=== PATIENT | female | born 1990 | race Caucasian/White ===

== ENCOUNTER 2016-12-25 22:04 | Inpatient (IN) | payer BC, OTHER ==
[~2016-12-25] VITALS: Ht 162.6 cm; Wt 55.2 kg
[2016-12-25] MEDS ORDERED: SODIUM CHLORIDE 0.9% 1000ML 1,000 ML IV STA ×2 (22:21)
[2016-12-25] MEDS ORDERED: LORAZEPAM 2 MG/ML 1 ML VIAL IV STA (22:21)
[2016-12-25] MEDS ORDERED: MULTI-VITAMIN INFUSION INJ 10 ML, THIAMINE HCL INJ 100 MG, FoLIC ACID INJ 1 MG in SODIU... IV ONE (22:30)
[2016-12-25 22:46] LABS: URINE APPEARANCE CLEAR (CLEAR); URINE BILIRUBIN NEG (NEG); URINE COLOR YELLOW; URINE EPITHELIAL CELL AUTO >30 /lpf (0-5); URINE NITRITE NEG (NEG); URINE PH 5.5 (4.5-7.5); UROBILINOGEN NEG (NEG); ZZUR CULT IF INDIC CLEAN CATCH YES
[2016-12-25 22:48] LABS: MANUAL MICROSCOPIC REQUIRED? NO; REVIEW REQ? NO
[2016-12-25] MEDS ORDERED: WLLSR/300 PO (22:53)
[2016-12-25] MEDS ORDERED: DPPI400 INJ (22:53)
[2016-12-25] MEDS ORDERED: QUET1TAB32 PO (22:53)
[2016-12-25] MEDS ORDERED: TOPI50TA16 PO (22:53)
[2016-12-25 23:00] LABS: MEAN CELL VOLUME 88.2 fL (80-100); MEAN CORPUSCULAR HEMOGLOBIN 31.6 pg (25-34); MEAN CORPUSCULAR HGB CONC 35.8 g/dl (32-36); MEAN PLATELET VOLUME 9.8 fL (7.4-10.4); PLATELET COUNT 261 K/uL (130-400); RED BLOOD COUNT 5.44 M/uL (4.2-5.4); WHITE BLOOD COUNT 7.41 K/uL (4.8-10.8)
[2016-12-25 23:14] LABS: PROTHROMBIN TIME (PATIENT) 10.2 SECONDS (9.0-12.0)
[2016-12-25 23:19] LABS: BUN/CREATININE RATIO 19.6 (10-20); CALCIUM 9.9 mg/dl (8.5-10.1); CREATININE 0.75 mg/dl (0.60-1.20); POTASSIUM 3.3 mmol/L (3.5-5.1)
[2016-12-25 23:20] LABS: BENZODIAZEPINE, URINE NEG (NEG); COCAINE,URINE NEG (NEG); PHENCYCLIDINE, URINE NEG (NEG)
[2016-12-25 23:28] LABS: ACETAMINOPHEN < 2 ug/ml (10-30); PREG INTERNAL NEGATIVE QC NEG CLEAR BACKGROUND; PREG INTERNAL POSITIVE QC POS CONTROL LINE
[2016-12-25 23:31] LABS: BASO % 0.4 %; BASO ABS # 0.03 K/uL (0-0.2); COMPLETE YES; EOS % 0.4 %; IG% 0.1 %; LYMPH % 53.4 %; LYMPH ABS # 3.96 K/uL (1.2-3.4); MONO % 4.9 %; NEUT % 40.8 %
[2016-12-25] MEDS ORDERED: POTASSIUM CHLORIDE 10 MEQ TABCR PO STA (23:42)
[2016-12-26] VITALS (21 sets, daily range): BP systolic 77–130; BP diastolic 34–94; PULSE 97–145; TEMP 36.6–37.5; O2SAT 94–100; Ht 162.6 cm; Wt 55.2 kg
--- NOTE | 2016-12-26 00:56 | History and Physical ---
History & Physical Date & Time of Service: Dec 26, 2016 at 00:51 Chief Complaint: Alcohol Detox Primary Care Physician: No Doctor, Assigned History of Present Illness Source: patient Loli is a 26 yo F who reports she has been drinking for many years, and moreso over the last few days. She presents intoxicated today and reports she wants to go to inpatient rehab. She reports her last drink was around noon on but is not definite on this. She reports she was drinking alone the last four days, and minly has vodka with orange juice. A large trigger for her alcohol consumption was her partner in [place] from a heroin overdose in September after she came to [facility]. She has been to in rehab before in [place] and found it helpful. She feels tremulous at this time, but denies any seizures before arrival. Past Medical/Surgical History Medical Problems: (1) Alcohol intoxication (2) Alcohol withdrawal Family History No pertinent FHx Social History Smoking Status: Current Every Day Smoker Smokeless Tobacco Use: No Alcohol Use: heavy Drug Use: marijuana Marital Status: single Housing status: lives alone Occupational Status: [employer] student Allergies Coded Allergies: No Known Allergies (Unverified , 12/25/16) Home Medications Scheduled Bupropion HCl (Wellbutrin Xl), 300 MG PO DAILY Medroxyprogesterone Acetate (Depo-Provera), 400 MG INJ [id number] Quetiapine Fumarate (Seroquel), 50-150 MG PO HS Topiramate (Topamax), 50 MG PO DAILY Review of Systems See HPI for pertinent positives & negatives. A total of 10 systems reviewed and were otherwise negative. Physical Exam Vital Signs Date Time Temp Pulse Resp B/P (MAP) Pulse Ox O2 Delivery O2 Flow Rate FiO2 12/26/16 00:43 130 19 98 12/26/16 00:38 127 17 98 12/26/16 00:33 125 18 98 12/26/16 00:28 122 17 97 12/26/16 00:23 124 17 97 12/26/16 00:18 121 18 97 12/26/16 00:13 119 15 97 12/26/16 00:08 128 20 98 12/26/16 00:03 120 19 97 12/25/16 23:58 121 15 99 12/25/16 23:53 123 20 98 12/25/16 23:48 127 19 98 12/25/16 23:43 125 18 96 12/25/16 23:38 121 23 97 12/25/16 23:33 122 22 98 12/25/16 23:28 118 20 126/91 98 Room Air 12/25/16 23:24 118 20 98 12/25/16 23:19 119 24 99 12/25/16 23:14 123 22 99 12/25/16 23:09 122 21 96 12/25/16 23:04 123 19 99 12/25/16 22:59 123 16 98 12/25/16 22:54 126 25 97 12/25/16 22:49 135 19 12/25/16 22:44 128 18 12/25/16 22:39 132 17 12/25/16 22:38 163 12/25/16 22:09 37.6 160 18 141/92 95 Room Air General Appearance: WD/WN, + mild distress, + thin Head: normocephalic, atraumatic Eyes: normal inspection ENT: hearing grossly normal Neck: supple, no JVD Respiratory/Chest: lungs clear, normal breath sounds, no respiratory distress Cardiovascular: no murmur, normal peripheral pulses, + tachycardia Abdomen/GI: non tender, soft Back: no CVA tenderness, no muscle spasm Extremities/Musculoskelatal: no calf tenderness, no pedal edema Neurologic/Psych: alert, normal mood/affect, normal reflexes, oriented x 3, + depressed affect Skin: no rash Lymphatic: no adenopathy Diagnostics Laboratory Results Results Past 24 Hours Test 12/25/16 22:31 12/25/16 22:38 Range/Units Urine Color YELLOW Urine Appearance CLEAR CLEAR Urine pH 5.5 4.5-7.5 Urine Specific [place] 1.020 1.000-1.030 Urine Protein 3+ NEG Urine Glucose (UA) NEG NEG Urine Ketones NEG NEG Urine Occult Blood 1+ NEG Urine Nitrite NEG NEG Urine Bilirubin NEG NEG Urine Urobilinogen NEG NEG Urine Leukocyte Esterase NEG NEG Urine WBC (Auto) 5-10 0-5 /hpf Urine RBC (Auto) 0-4 0-4 /hpf Urine Hyaline Casts (Auto) 5-10 0-5 /lpf Urine Epithelial Cells (Auto) >30 0-5 /lpf Urine Bacteria (Auto) 1+ NEG Urine Opiates Screen NEG NEG Urine Methadone, Qualitative NEG NEG Urine Barbiturates NEG NEG Urine Phencyclidine (PCP) Level NEG NEG Ur Amphetamine/Methamphetamine NEG NEG MDMA (Ecstasy) Screen POS NEG Urine Benzodiazepines Screen NEG NEG Urine Cocaine Metabolite NEG NEG Urine Marijuana (THC) POS NEG White Blood Count 7.41 4.8-10.8 K/uL Red Blood Count 5.44 4.2-5.4 M/uL Hemoglobin 17.2 12.0-16.0 g/dL Hematocrit 48.0 37-47 % Mean Corpuscular Volume 88.2 80-100 fL Mean Corpuscular Hemoglobin 31.6 25-34 pg Mean Corpuscular Hemoglobin Concent 35.8 32-36 g/dl Platelet Count 261 130-400 K/uL Mean Platelet Volume 9.8 7.4-10.4 fL Neutrophils (%) (Auto) 40.8 % Lymphocytes (%) (Auto) 53.4 % Monocytes (%) (Auto) 4.9 % Eosinophils (%) (Auto) 0.4 % Basophils (%) (Auto) 0.4 % Neutrophils # (Auto) 3.02 1.4-6.5 K/uL Lymphocytes # (Auto) 3.96 1.2-3.4 K/uL Monocytes # (Auto) 0.36 0.11-0.59 K/uL Eosinophils # (Auto) 0.03 0-0.5 K/uL Basophils # (Auto) 0.03 0-0.2 K/uL RDW Standard Deviation 38.9 36.4-46.3 fL RDW Coefficient of Variation 12.2 11.5-14.5 % Immature Granulocyte % (Auto) 0.1 % Immature Granulocyte # (Auto) 0.01 0.00-0.02 K/uL Prothrombin Time 10.2 9.0-12.0 SECONDS Prothromb Time International Ratio 1.0 0.9-1.1 Activated Partial Thromboplast Time 25.2 21.0-31.0 SECONDS Partial Thromboplastin Ratio 1.0 Sodium Level 145 136-145 mmol/L Potassium Level 3.3 3.5-5.1 mmol/L Chloride Level 106 98-107 mmol/L Carbon Dioxide Level 24 21-32 mmol/L Anion Gap 15.0 3-11 mmol/L Blood Urea Nitrogen 15 7-18 mg/dl Creatinine 0.75 0.60-1.20 mg/dl Est Creatinine Clear Calc Drug Dose 95.5 ml/min Estimated GFR () 129.3 Estimated GFR (Non- 111.6 BUN/Creatinine Ratio 19.6 10-20 Random Glucose 110 70-99 mg/dl Osmolality 388 280-300 mOsm/kg Calcium Level 9.9 8.5-10.1 mg/dl Total Bilirubin 1.1 0.2-1 mg/dl Direct Bilirubin 0.3 0-0.2 mg/dl Aspartate Amino Transf (AST/SGOT) 27 15-37 U/L Alanine Aminotransferase (ALT/SGPT) 27 12-78 U/L Alkaline Phosphatase 63 45-117 U/L Total Creatine Kinase 250 26-192 U/L Total Protein 7.9 6.4-8.2 gm/dl Albumin 4.4 3.4-5.0 gm/dl Human Chorionic Gonadotropin, Qual NEG NEG Salicylates Level < 1.7 2.8-20 mg/dl Acetaminophen Level < 2 10-30 ug/ml Ethyl Alcohol mg/dL 353.0 0-3 mg/dl Microbiology Results 12/25/16 Urine Culture, Received Pending Impression Assessment and Plan 26 yo F with acute alcohol withdrawal - last drink about 12 hours ago. Alcohol withdrawal - Gabapentin protocol - Ativan PRN as well - Referral to social studies department chair - Banana bag - Thiamine replacement - IV Fluids - Zofran PRN Depression - No suicidal intent at this time, but has had thoughts in last few weeks, but has never acted on them. Does not want to see Psych at this time but reports will think about it. - Continue home medications VTE: Early ambulation, SCDs DISPO: Tele CODE STATUS: FULL Resident Physician Supervision Note: I was present with Dr. Polanco during the history and exam. I discussed the case with the resident and agree with the findings and plan as documented in the note. Any exceptions or clarifications are listed here: 26 y/o F Hx ETOH abuse presenting with alcoholic halucinosis and impending DTs - does have a history of same OE AAO x 3 S1,2 R CTAB NT, ND Coordination may be mildly impaired P: Treat for acute withdrawal - Benzodiazepines for now - and look to transfer to rehab facility Advised on smoking cessation Above discussed with pt and resident Documented By: Tim Pearce Level of Care Telemetry Resuscitation Status FULL RESUSCITATION VTE Prophylaxis VTE Risk Assessment Done? Y/N: Yes Risk Level: Moderate Resident Tracking Resident Involvement: Resident Care Provided Care Provided: Adult Hospital Medicine
[2016-12-26] MEDS ORDERED: POLYETHYLENE (MIRALAX) 17 GM PACK PO PRN (01:00)
[2016-12-26] MEDS ORDERED: MAGNESIUM HYDROXIDE SUSP 30 ML UDC PO PRN (01:00)
[2016-12-26] MEDS ORDERED: ACETAMINOPHEN 325 MG TAB PO PRN (01:00)
[2016-12-26] MEDS ORDERED: LORAZEPAM 2 MG/ML 1 ML VIAL IV PRN (01:00)
[2016-12-26] MEDS ORDERED: ALUMINUM/MAGNESIUM/SIMETH (MAALOX MAX) 30 ML UDC PO PRN (01:00)
[2016-12-26] MEDS ORDERED: ONDANSETRON INJ 2 MG/ML 2 ML VIAL IV PRN (01:00)
[2016-12-26] MEDS ORDERED: GABAPENTIN 600 MG TAB PO SCH (01:00)
[2016-12-26] MEDS ORDERED: GABAPENTIN 1200MG LOADING DOSE PO ONE (02:00)
[2016-12-26] MEDS ORDERED: NURSING VERBAL MED ORDER ONE ×2 (02:45→05:00)
--- NOTE | 2016-12-26 02:48 | EMERGENCY ROOM VISIT NOTE ---
History First contact with patient: 22:13 Chief Complaint: DETOX REQUEST Stated Complaint: ALCOHOL DETOX Nursing Triage Summary: pt requesting detox from ETOH History of Present Illness The patient is a 26 year old female who presents to the Emergency Room with complaints of alcoholism requesting detox. Patient gone to rehabilitation before. Patient states she gets the shakes from not drinking. She has been drinking nonstop for the past 4 days. She's been drinking vodka. She also smokes. No recent recreational drug abuse. She has smoked marijuana in the past. Patient states she has been seeing things that have not been there today. She states she thought it was raining but was not. No history of seizures from alcohol withdrawal. Patient states she does get very tremulous though. Patient is requesting detox. She denies chest pain, dyspnea, fever, chills, cough, congestion, abdominal pain, black or blood in her stool or any other medical complaints. Patient states she just put on her vodka just prior to getting here. She does not know how much she drinks daily but states it is a lot. Review of Systems See HPI for pertinent positives & negatives. A total of 10 systems reviewed and were otherwise negative. Past Medical/Surgical History Medical Problems: (1) Alcohol intoxication (2) Alcohol withdrawal Alcoholism, anxiety Social History Smoking Status: Current Every Day Smoker Alcohol Use: heavy Housing Status: lives with roommate Occupation Status: [employer] student Current/Historical Medications Scheduled Bupropion HCl (Wellbutrin Xl), 300 MG PO DAILY Medroxyprogesterone Acetate (Depo-Provera), 400 MG INJ [id number] Quetiapine Fumarate (Seroquel), 50-150 MG PO HS Topiramate (Topamax), 50 MG PO DAILY Physical Exam Vital Signs Date Time Temp Pulse Resp B/P (MAP) Pulse Ox O2 Delivery O2 Flow Rate FiO2 12/26/16 00:48 133 15 97 12/26/16 00:43 130 19 98 12/26/16 00:38 127 17 98 12/26/16 00:33 125 18 98 12/26/16 00:28 122 17 97 12/26/16 00:23 124 17 97 12/26/16 00:18 121 18 97 12/26/16 00:13 119 15 97 12/26/16 00:08 128 20 98 12/26/16 00:03 120 19 97 12/25/16 23:58 121 15 99 12/25/16 23:53 123 20 98 12/25/16 23:48 127 19 98 12/25/16 23:43 125 18 96 12/25/16 23:38 121 23 97 12/25/16 23:33 122 22 98 12/25/16 23:28 118 20 126/91 98 Room Air 12/25/16 23:24 118 20 98 12/25/16 23:19 119 24 99 12/25/16 23:14 123 22 99 12/25/16 23:09 122 21 96 12/25/16 23:04 123 19 99 12/25/16 22:59 123 16 98 12/25/16 22:54 126 25 97 12/25/16 22:49 135 19 12/25/16 22:44 128 18 12/25/16 22:39 132 17 12/25/16 22:38 163 12/25/16 22:09 37.6 160 18 141/92 95 Room Air Physical Exam PHYSICAL EXAM: VITALS: Vitals are noted on the nurse's note and reviewed by myself. Vital signs tachycardic. GENERAL: Pleasant female tearful crying and anxious with EtOH odor, in no acute distress, nondiaphoretic, well-developed well-nourished. The patient is visibly intoxicated. SKIN: The skin was without obvious lacerations, abrasions, or rashes. There is no tenting of the skin. Capillary reflex less than 2 seconds. HEENT: Normocephalic, atraumatic. PERRLA. EOMI. Conjunctiva with mild injection without icterus. Tympanic membranes without erythema or effusion bilaterally no hemotympanum. External auditory canals are clear. Nares patent bilaterally. No epistaxis. Oropharynx without erythema or exudate. Uvula midline. Oral mucosal moist. No lymphadenopathy. Neck is supple without cervical spine tenderness. HEART: Regular rate and rhythm without murmurs gallops or rubs. Peripheral pulses 2+. LUNGS: Clear to auscultation bilaterally without wheezes, rales or rhonchi. ABDOMEN: Positive bowel sounds x 4. Normal tympanic percussion. Soft, nontender, without masses or organomegaly. MUSCULOSKELETAL: Gross motor function of the upper and lower extremities intact. The patient has a staggering gait. NEUROLOGIC: The patient is visibly intoxicated. Once they were more sober they were alert and oriented to person place and time. Medical Decision & Procedures Laboratory Results 12/25/16 22:38 Red Blood Count 5.44, Mean Corpuscular Volume 88.2, Mean Corpuscular Hemoglobin 31.6, Mean Corpuscular Hemoglobin Concent 35.8, Mean Platelet Volume 9.8, Neutrophils (%) (Auto) 40.8, Lymphocytes (%) (Auto) 53.4, Monocytes (%) (Auto) 4.9, Eosinophils (%) (Auto) 0.4, Basophils (%) (Auto) 0.4, Neutrophils # (Auto) 3.02, Lymphocytes # (Auto) 3.96, Monocytes # (Auto) 0.36, Eosinophils # (Auto) 0.03, Basophils # (Auto) 0.03 12/25/16 22:38 Test 12/25/16 22:31 12/25/16 22:38 Urine Color YELLOW Urine Appearance CLEAR (CLEAR) Urine pH 5.5 (4.5-7.5) Urine Specific [place] 1.020 (1.000-1.030) Urine Protein 3+ (NEG) Urine Glucose (UA) NEG (NEG) Urine Ketones NEG (NEG) Urine Occult Blood 1+ (NEG) Urine Nitrite NEG (NEG) Urine Bilirubin NEG (NEG) Urine Urobilinogen NEG (NEG) Urine Leukocyte Esterase NEG (NEG) Urine WBC (Auto) 5-10 /hpf (0-5) Urine RBC (Auto) 0-4 /hpf (0-4) Urine Hyaline Casts (Auto) 5-10 /lpf (0-5) Urine Epithelial Cells (Auto) >30 /lpf (0-5) Urine Bacteria (Auto) 1+ (NEG) Urine Opiates Screen NEG (NEG) Urine Methadone, Qualitative NEG (NEG) Urine Barbiturates NEG (NEG) Urine Phencyclidine (PCP) Level NEG (NEG) Ur Amphetamine/Methamphetamine NEG (NEG) MDMA (Ecstasy) Screen POS (NEG) Urine Benzodiazepines Screen NEG (NEG) Urine Cocaine Metabolite NEG (NEG) Urine Marijuana (THC) POS (NEG) White Blood Count 7.41 K/uL (4.8-10.8) Red Blood Count 5.44 M/uL (4.2-5.4) Hemoglobin 17.2 g/dL (12.0-16.0) Hematocrit 48.0 % (37-47) Mean Corpuscular Volume 88.2 fL (80-100) Mean Corpuscular Hemoglobin 31.6 pg (25-34) Mean Corpuscular Hemoglobin Concent 35.8 g/dl (32-36) Platelet Count 261 K/uL (130-400) Mean Platelet Volume 9.8 fL (7.4-10.4) Neutrophils (%) (Auto) 40.8 % Lymphocytes (%) (Auto) 53.4 % Monocytes (%) (Auto) 4.9 % Eosinophils (%) (Auto) 0.4 % Basophils (%) (Auto) 0.4 % Neutrophils # (Auto) 3.02 K/uL (1.4-6.5) Lymphocytes # (Auto) 3.96 K/uL (1.2-3.4) Monocytes # (Auto) 0.36 K/uL (0.11-0.59) Eosinophils # (Auto) 0.03 K/uL (0-0.5) Basophils # (Auto) 0.03 K/uL (0-0.2) RDW Standard Deviation 38.9 fL (36.4-46.3) RDW Coefficient of Variation 12.2 % (11.5-14.5) Immature Granulocyte % (Auto) 0.1 % Immature Granulocyte # (Auto) 0.01 K/uL (0.00-0.02) Prothrombin Time 10.2 SECONDS (9.0-12.0) Prothromb Time International Ratio 1.0 (0.9-1.1) Activated Partial Thromboplast Time 25.2 SECONDS (21.0-31.0) Partial Thromboplastin Ratio 1.0 Anion Gap 15.0 mmol/L (3-11) Est Creatinine Clear Calc Drug Dose 95.5 ml/min Estimated GFR () 129.3 Estimated GFR (Non- 111.6 BUN/Creatinine Ratio 19.6 (10-20) Osmolality 388 mOsm/kg (280-300) Calcium Level 9.9 mg/dl (8.5-10.1) Total Bilirubin 1.1 mg/dl (0.2-1) Direct Bilirubin 0.3 mg/dl (0-0.2) Aspartate Amino Transf (AST/SGOT) 27 U/L (15-37) Alanine Aminotransferase (ALT/SGPT) 27 U/L (12-78) Alkaline Phosphatase 63 U/L (45-117) Total Creatine Kinase 250 U/L (26-192) Total Protein 7.9 gm/dl (6.4-8.2) Albumin 4.4 gm/dl (3.4-5.0) Human Chorionic Gonadotropin, Qual NEG (NEG) Salicylates Level < 1.7 mg/dl (2.8-20) Acetaminophen Level < 2 ug/ml (10-30) Ethyl Alcohol mg/dL 353.0 mg/dl (0-3) Medications Administered Medications (Trade) Dose Ordered Sig/Zack Route Start Time Stop Time Status Last Admin Dose Admin Sodium Chloride 1,000 ml @ 999 mls/hr Q1H1M STAT IV 12/25/16 22:21 12/25/16 23:21 DC 12/25/16 22:51 999 MLS/HR Sodium Chloride 1,000 ml @ 125 mls/hr Q8H STAT IV 12/25/16 22:21 12/26/16 01:17 DC 12/26/16 00:49 125 MLS/HR Multivitamins 10 ml/Thiamine HCl 100 mg/Folic Acid 1 mg/Sodium Chloride 1,011.2 ml @ 150 mls/ hr Q6H45M ONCE IV 12/25/16 22:30 12/26/16 05:14 12/25/16 23:18 150 MLS/HR Lorazepam (Ativan Inj) 0.5 mg NOW STAT IV 12/25/16 22:21 12/25/16 22:23 DC 12/25/16 22:50 0.5 MG Potassium Chloride (Klor-Con M10) 20 meq NOW STAT PO 12/25/16 23:42 12/25/16 23:43 DC 12/26/16 00:53 20 MEQ ED Course Prior records/ancillary studies reviewed. Triage Nursing notes reviewed. The patient's history was concerning for altered mental status and a possible alcohol overdose. Differential diagnosis: Etiologies such as alcohol intoxication, toxicologic, infection, hypoglycemia, electrolyte abnormalities, cardiac sources, intracerebral event, neurologic, as well as others were entertained. Physical examination: As above. The patient is clinically intoxicated. no trauma noted. ER treatment provided: Monitoring Aspiration precautions The patient was frequently reassessed. Diagnostic interpretation by me: Cardiac monitoring did not reveal any evidence of dysrhythmia. The labs revealed hypokalemia and this is replaced orally. The patient's blood alcohol level was 353 mg/dL. Consultation: I consulted the hospice, Dr. Pearce, and will evaluate the patient for possible admission for alcohol withdrawal and abuse. Exam and history seem consistent with alcoholism. Patient has a history of DTs and has been hallucinating. She will be evaluated by medicine for possible admission. She was hydrated as above. Banana bag was initiated.By the evaluation outlined above emergent etiologies such as trauma, infection, hypoglycemia, electrolyte abnormalities, cardiac sources, intracerebral event, neurologic,as well as others were deemed relatively unlikely. The patient was informed about the findings as listed above. The patient was counseled on the dangers of excessive alcohol use. I gave my usual and customary discussion regarding this issue. All questions were answered and the patient was pleased with the treatment. Case reviewed with my attending. Medical Decision As above Medication Reconcilliation Current Medication List: was personally reviewed by me Blood Pressure Screening Patient's blood pressure: Normal blood pressure Impression Primary Impression: Alcohol abuse Additional Impression: Hypokalemia Departure Information Dispostion Being Evaluated By Hospitalist Condition FAIR Patient Instructions My [facility] Problem Qualifiers
[2016-12-26] MEDS ORDERED: THIAMINE HCL 100 MG/ML 2 ML VIAL IV SCH (04:45)
[2016-12-26] MEDS ORDERED: SODIUM CHLORIDE 0.9% 1000ML 1,000 ML IV SCH (05:15)
[2016-12-26] MEDS: SODIUM CHLOR 0.45% + 20MEQ KCL 1,000 ML IV SCH ×2 (06:18→11:27)
--- NOTE | 2016-12-26 08:59 | Family Medicine Progress Note ---
Progress Note Date of Service Dec 26, 2016. Subjective Pt evaluation today including: conversation w/ patient The patient was seen and examined at bedside. Pt is sedated. She received 1200 mg of Gabapentin overnight and Ativan. She is on the AWSS protocol. Unable to assess a history because patient is sedated. Appears well. Awakens for long enough to say "come back later". Sinus tach on tele. * Update: Pt examined around 10am and was awake, alert and oriented. She denies ever requesting inpatient rehab. She states that she wants to be discharged to home when she is medically ready. Told pt that we would like to see normal vital signs for age before discharging. * ROS: No chest pain, no SOB, no dyspnea on exertion, no palpitations, no fevers, no chills, no nausea, no vomiting, no diarrhea, no dysuria, no rash, no abdominal pain. Constitutional: No fever, No chills Respiratory: No cough, No sputum, No wheezing, No shortness of breath Abdomen: No pain, No nausea, No vomiting, No diarrhea Female : No dysuria Objective Physical Exam General Appearance: WD/WN, + pertinent finding (sleeping) Eyes: normal inspection Respiratory/Chest: chest non-tender, lungs clear, normal breath sounds, no respiratory distress, no accessory muscle use Cardiovascular: regular rate, rhythm, no edema, no gallop, no JVD, no murmur Abdomen: normal bowel sounds, non tender, soft, no organomegaly Extremities: normal range of motion, non-tender, normal inspection, no pedal edema, no calf tenderness Neurologic/Psychiatric: alert, normal mood/affect, + pertinent finding (Unable to assess orientation because of sedation. ) Skin: normal color, warm/dry, no rash Assessment and Plan 26F with acute alcohol withdrawal - last drink about 12 hours ago. In the ED pt states to admitting resident that she wanted to go to inpatient rehab. Discharge planning eval was consulted. Urine tox was positive for ethyl alcohol , MDMA and Marijuana. After acute intoxication episode resolved pt denies requesting inpatient rehab. She would like to be discharged to home. Will discharge when medically stable. Polysubstance Abuse (alcohol, marijuana) - Pt appears to be at her baseline, answering questions appropriately, albeit tachycardic on monitor. - Ethyl alcohol level was >300, urine was positive for MDMA and Marijuana - pt states she doesn't know why her urine was positive for MDMA. - Aggressive fluid rehydration, 200mls/hr of 1/2NSS with 20meq of KCL. - We will monitor for signs of alcohol withdrawal and treat withdrawal symptoms with hospital AWSS protocol (Gabapenting, Lorazepam PRN) - Thiamine 500mg PO daily. - Zofran Prn for symptoms. - Resume regular diet. - smoking cessation consult - reassess in am Abnormal UA - Urine Culture negative Depression - No suicidal intent at this time, but has had thoughts in last few weeks, but has never acted on them. Does not want to see Psych at this time but reports will think about it. - Continue home psych medications * Wellbutrin 300mg daily * Topamax 50mg daily. * Quetiapine 100mg QHS - Monitor DVT Proph: Early ambulation, SCDs DISPO: Tele, Freida Trejo [phone] would like to kept updated. FULL CODE Resident Involvement: Resident Care Provided Care Provided: Adult Hospital Medicine Reviewed: Pt Seen/Exam by Me History somnolent this am. revisited around noon- alert and appropriately responsive. denied any thoughts of harming herself or other. would like to be discharged home once stable from withdrawal. plans to join outpatient rehab program. currently a student at [employer] Constitutional: denies: fever Respiratory: negative: short of breath Cardiovascular: denies chest pain General Appearance: no apparent distress Respiratory: lungs clear, no respiratory distress Cardiovascular: regular rate, rhythm Neurologic/Psychiatric: alert, oriented x 3, other (anxious, tremulous) Skin Characteristics: warm/dry Assessment/Plan Resident Physician Supervision Note: I was present with Dr. Mari in bedside. I verified the hawk history and physical, reviewed labs and image studies, discussed the case with the resident and agree with the findings and care plan.
[2016-12-26] MEDS ORDERED: THIAMINE HCL 100 MG TAB PO SCH (09:00)
[2016-12-26] MEDS ORDERED: THIAMINE HCL INJ 100 MG in SYRINGE 9 ML IV SCH (09:00)
[2016-12-26] MEDS ORDERED: QUETIAPINE FUMARATE 25 MG TAB PO SCH (09:00)
[2016-12-26] MEDS ORDERED: QUETIAPINE FUMARATE 100 MG TAB PO SCH ×2 (09:00→21:00)
[2016-12-26] MEDS: TOPIRAMATE 25 MG TAB PO SCH (09:24)
[2016-12-26] MEDS: BuPROPion XL 300 MG TABCR PO SCH (09:24)
[2016-12-26] MEDS: GABAPENTIN 600MG Q6H DOSE PO SCH ×2 (09:25→13:49)
[2016-12-26] MEDS ORDERED: THIAMINE HCL 100 MG TAB PO ONE (13:00)
[2016-12-26] MEDS: LORAZEPAM 1 MG TAB PO PRN (21:15)
[2016-12-26] MEDS ORDERED: GABAPENTIN 600MG Q8H DOSE PO SCH (22:00)
[2016-12-27 03:48] VITALS: BP 120/90; PULSE 123; TEMP 36.9; O2SAT 96
[2016-12-27 07:44] VITALS: BP 135/98; PULSE 118; TEMP 37.1; O2SAT 100
[2016-12-27 08:15] LABS: BASO % 0.2 %; BASO ABS # 0.01 K/uL (0-0.2); COMPLETE YES; EOS % 3.3 %; HEMATOCRIT 38.3 % (37-47); IG% 0.3 %; LYMPH % 36.5 %; LYMPH ABS # 2.22 K/uL (1.2-3.4); MEAN CELL VOLUME 91.8 fL (80-100); MEAN CORPUSCULAR HEMOGLOBIN 32.4 pg (25-34); MEAN CORPUSCULAR HGB CONC 35.2 g/dl (32-36); MEAN PLATELET VOLUME 10.2 fL (7.4-10.4); MONO % 5.4 %; NEUT % 54.3 %; PLATELET COUNT 139 K/uL (130-400); RED BLOOD COUNT 4.17 M/uL (4.2-5.4); WHITE BLOOD COUNT 6.09 K/uL (4.8-10.8)
[2016-12-27 08:34] VITALS: PULSE 98; O2SAT 97
[2016-12-27 08:49] LABS: CALCIUM 8.9 mg/dl (8.5-10.1); CREATININE 0.69 mg/dl (0.60-1.20); POTASSIUM 3.8 mmol/L (3.5-5.1)
[2016-12-27] MEDS: LORAZEPAM 1 MG TAB PO PRN ×2 (08:49→14:02)
[2016-12-27] MEDS: TOPIRAMATE 25 MG TAB PO SCH (08:49)
[2016-12-27] MEDS: BuPROPion XL 300 MG TABCR PO SCH (08:50)
[2016-12-27 08:52] LABS: ALB/GLOB RATIO 1.2 (0.9-2); PHOSPHORUS 3.9 mg/dl (2.5-4.9)
[2016-12-27] MEDS ORDERED: THIAMINE HCL 100 MG TAB PO SCH (09:00)
[2016-12-27] MEDS ORDERED: GABA1CAP5 PO (09:40)
[2016-12-27] MEDS ORDERED: GABAPENTIN 400 MG CAP PO ONE (09:41)
--- NOTE | 2016-12-27 12:01 | Family Medicine Progress Note ---
Progress Note Date of Service Dec 27, 2016. Subjective Pt evaluation today including: conversation w/ patient The patient was seen and examined at bedside. No acute overnight events. Tele showed sinus tach that is improved from the previous 24 hours. Pt does not have any focal complaints. She appears a little anxious. She verbalized some life stressors including moving, school and family stressors. She denies SI or HI. Overnight notes show that pt was somnolent. Eating and urinating well. No IVF at present. States she wants decreased checks. *Update: 2:45pm Nurse reports pt is having anxiety and states she cannot take it anymore and she wants to go to inpatient rehab. career development manager was updated. * Plan of care was described to the patient and all questions were answered. 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 In the ED pt states to admitting resident that she wanted to go to inpatient rehab. Discharge planning eval was consulted. Urine tox was positive for ethyl alcohol , MDMA and Marijuana. After acute intoxication episode resolved pt denies requesting inpatient rehab. She would like to be discharged to home and attend an outpatient rehab program. Pt continues to have anxiety and is in sinus tach on monitor. We are monitoring for signs of withdrawal. Discharge when medically stable. Polysubstance Abuse (alcohol, marijuana) - Pt appears to be at her baseline, answering questions appropriately, albeit tachycardic on monitor. - Ethyl alcohol level was >300, urine was positive for MDMA and Marijuana - pt states she doesn't know why her urine was positive for MDMA. - s/p 6L of IVF, stopped at present since pt is eating and drinking appropriately. - Ativan PRN according to AWSS protocol - pt has received 3 doses (1mg each) in 24 hours. - continue Thiamine 500mg PO daily. - continue Zofran PRN for symptoms. - Resume regular diet. - smoking cessation consult - Pt is on Gabapentin 400mg QID at home, we restart the home dose. Abnormal UA - Asymptomatic, and urine Culture negative. Depression - No suicidal intent at this time, but has had thoughts in last few weeks, but has never acted on them. Does not want to see Psych at this time but reports will think about it. - Continue home psych medications * Wellbutrin 300mg daily * Topamax 50mg daily. * Quetiapine 100mg QHS - Monitor DVT Proph: Early ambulation, SCDs DISPO: Tele, Mom, Freida [phone] would like to kept updated. FULL CODE Resident Involvement: Resident Care Provided Care Provided: Adult Hospital Medicine
[2016-12-27 12:02] VITALS: BP 129/90; PULSE 108; TEMP 37.1; O2SAT 100
[2016-12-27] MEDS ORDERED: GABAPENTIN 400 MG CAP PO SCH (13:00)
[2016-12-27] MEDS ORDERED: CHLORDIAZEPOXIDE 10 MG CAP PO ONE (15:00)
[2016-12-27 16:03] VITALS: BP 139/91; PULSE 119; TEMP 36.9; O2SAT 97
[2016-12-27] MEDS ORDERED: CHLO10CA7 PO (17:08)
--- NOTE | 2016-12-27 17:12 | Discharge Instructions ---
Discharge Instructions Date of Service Dec 27, 2016. Admission Reason for Admission: Alcohol Intoxication,Alcohol Withdrawal Discharge Discharge Diagnosis / Problem: Polysubstance Abuse Intoxication Discharge Goals Goal(s): Decrease discomfort, Improve function, Increase independence, Improve nutritional status, Learn about illness Activity Recommendations Activity Limitations: per Instructions/Follow-up section . Instructions / Follow-Up Instructions / Follow-Up Please refrain from drinking alcohol. If you experience tremors, hallucinations (either auditory or visual) return to the ER immediately. You should be taking a multivitamin every day. Make sure this multivitamin includes Vitamin B1. Information for Outpatient counseling for alcohol abuse has been given to you. You have an appointment with your counsellor (Christy) scheduled for tomorrow December 28, 2016. Please keep this appointment. Please also keep your appointment with your Psychiatrist, Dr Cosme. Current Hospital Diet Patient's current hospital diet: Regular Diet Discharge Diet Recommended Diet: Regular Diet Pending Studies Studies pending at discharge: no Medical Emergencies . Who to Call and When: Medical Emergencies: If at any time you feel your situation is an emergency, please call 911 immediately. . Non-Emergent Contact Non-Emergency issues call your: Primary Care Provider, Specialist (Psychiatrist ) . . "Provider Documentation" section prepared by Vance Mari. . VTE Core Measure Inpt VTE Proph given/why not?: SCD's Resident Involvement: Resident Care Provided Care Provided: Adult Hospital Medicine
--- NOTE | 2016-12-27 17:17 | Discharge Summary ---
Discharge Summary Date of Service Dec 27, 2016. (Vance Mari M.D.) Discharge Summary Admission Date: Dec 26, 2016 at 00:51 Discharge Disposition: Home Principal Diagnosis: Polysubstance Abuse - Acute Intoxication Procedures: EKG Sinus tachycardia Otherwise normal ECG When compared with ECG of 25-DEC-2016 22:35, No significant change was found (Vance Mari M.D.) Medication Reconciliation Continued Medications: Bupropion HCl (Wellbutrin Xl) 300 Mg Tabcr 300 MG PO DAILY Gabapentin (Neurontin) 400 Mg Cap 1 CAP PO QID for 30 Days, #120 CAP 0 Refills Medroxyprogesterone Acetate (Depo-Provera) 400 Mg/Ml Inj 400 MG INJ [id number] Quetiapine Fumarate (Seroquel) 50 Mg Tab 50-150 MG PO HS, TAB Topiramate (Topamax) 50 Mg Tab 50 MG PO DAILY, TAB Discharge Exam The patient was seen and examined at bedside. No acute overnight events. Pt does not have any focal complaints. She appears a little anxious. She verbalized some life stressors including moving, school and family stressors. She denies SI or HI. Overnight notes show that pt was somnolent. Eating and urinating well. No IVF at present. States she wants decreased checks. Plan of care was described to the patient and all questions were answered. Physical Exam General Appearance: WD/WN, no apparent distress Respiratory/Chest: chest non-tender, lungs clear, normal breath sounds, no respiratory distress, no accessory muscle use Cardiovascular: no edema, no gallop, no JVD, no murmur, + tachycardia Abdomen: normal bowel sounds, non tender, soft, no organomegaly, no pulsatile mass Extremities: normal range of motion, no calf tenderness Neurologic/Psychiatric: alert, oriented x 3, + pertinent finding (Pt appears anxious, denies SI or HI.) Skin: no rash (Vance Mari M.D.) denies any SI, HI, hallucination. Would like to go home and address the drug rehab as outpatient AWSS score of 6 at the time of discharge Review of Systems: Constitutional: No fever Respiratory: No shortness of breath Cardiovascular: No chest pain Physical Exam: General Appearance: no apparent distress Respiratory/Chest: lungs clear, no respiratory distress Abdomen / GI: normal bowel sounds, non tender, soft Neurologic/Psychiatric: alert, normal mood/affect, oriented x 3 Skin: warm/dry (Diana Barrios M.D.) Hospital Course 26F with acute alcohol withdrawal - last drink about 12 hours prior to arrival In the ED pt states to admitting resident that she wanted to go to inpatient rehab. Discharge planning eval was consulted and the process was started for arranging for a confidential inpatient rehab facility. Urine tox was positive for ethyl alcohol, MDMA and Marijuana. After acute intoxication episode resolved pt denies requesting inpatient rehab. She would like to be discharged to home and attend an outpatient rehab program. Pt continues to have anxiety and is in sinus tach on monitor. We monitored for signs of withdrawal (delirium , agitation, psychosis, hallucinations, anxiety, tremors) and treated with Benzodiazepines. Her home psychiatric medications were continued in the hospital in addition to her Gabapentin. Pt was discharged in good condition with outpatient follow up arranged. Total Time Spent: Greater than 30 minutes This includes examination of the patient, discharge planning, medication reconciliation, and communication with other providers. (Vance Mari M.D.) Resident Physician Supervision Note: I was present with Dr. Mari in bedside. I verified the hawk history and physical, reviewed labs and image studies, discussed the case with the resident and agree with the findings and care plan. Total Time Spent: Greater than 30 minutes (45) (Diana Barrios M.D.) Discharge Instructions Please refer to the electronic Patient Visit Report (Discharge Instructions) for additional information. (Vance Mari M.D.) Follow-Up Follow up with your Counsellor (Christy) tomorrow, December 28, 2016. Follow up with Dr. Cosme, your psychiatrist, on January 10, 2017. (Vance Mari M.D.) Additional Copies To Isiah Cosme M.D. Resident Involvement: Resident Care Provided Care Provided: Adult [facility] Medicine (Vance Mari M.D.)
[2016-12-27 17:34] VITALS: BP 139/91; PULSE 119; TEMP 36.9; O2SAT 97
[2016-12-27] MEDS ORDERED: CHLORDIAZEPOXIDE 10 MG CAP PO SCH (18:00)
[2016-12-28] MEDS ORDERED: GABAPENTIN 600MG Q12H DOSE PO SCH (08:00)
[2016-12-29] MEDS ORDERED: GABAPENTIN 600MG X1 DOSE PO SCH (08:00)
== END 2016-12-27 18:29 | disposition home or self-care (01) | DRG 897 ==
LOC: C.EDB 22:05 → C.2E 12-26 00:51 → ENRESERV 12-26 01:17
PROVIDERS: ADMIT Internal Medicine; ATTEND Family Medicine
DX: F10.232 Alcohol dependence with withdrawal with perceptual disturbance (principal); F10.229 Alcohol dependence with intoxication, unspecified; R00.0 Tachycardia, unspecified; Y90.9 Presence of alcohol in blood, level not specified; F12.10 Cannabis abuse, uncomplicated; R82.90 Unspecified abnormal findings in urine; F32.9 Major depressive disorder, single episode, unspecified; F17.200 Nicotine dependence, unspecified, uncomplicated; Z79.899 Other long term (current) drug therapy